=== PATIENT | female | born 1945 | race Caucasian/White ===

== ENCOUNTER → 2024-06-25 | Outpatient (CLI) | payer MEDICARE, BC, SELFPAY ==
[2024-06-25 12:25] LABS: Albumin, Serum 4.9 gm/dL (3.4-4.8); Alkaline Phosphatase 112 U/L (46-116); Anion Gap 11 (7-16); BUN/Creatinine Ratio 18 Ratio (12-20); Blood Urea Nitrogen 16 mg/dL (9-23); Calcium 10.9 mg/dL (8.3-10.6); Calcium (Corrected) 10.9 mg/dL (8.5-10.1); Carbon Dioxide 26.6 mMol/L (20.0-31.0); Chloride 103 mMol/L (98-107); Creatinine (Component) 0.9 mg/dL (0.6-1.3); Glucose 156 mg/dL (74-106); Osmolality,Calculated 285 (275-295); Potassium 4.1 mMol/L (3.4-5.1); Sodium 141 mMol/L (136-145); eGFR > 60 See Note
[2024-06-25 12:27] LABS: Alanine Aminotransferase 17 U/L (10-49); Albumin/Globulin Ratio 2.1 (1.2-2.2); Aspartate Amino Transferase 16 U/L (0-34); Bilirubin,Total 0.8 mg/dL (0.3-1.2); Globulin 2.3 gm/dL (2.3-3.5); Total Protein 7.2 gm/dL (5.7-8.2)
[2024-06-25 12:33] LABS: Glucose Estimated Average 180 mg/dL (80-131); Hemoglobin A1C 7.9 % Hgb (4.8-6.0)
== END | disposition home or self-care (01) ==
LOC: COPL 10:18
PROVIDERS: PCP Specialist; Referring Provider Specialist; Visit Provider Specialist
DX: E11.65 Type 2 diabetes mellitus with hyperglycemia (principal)
CPT/HCPCS: 36415; 80053; 83036

== ENCOUNTER 2024-08-19 10:00 | Outpatient (RCR) | payer MEDICARE, BC, SELFPAY ==
--- NOTE | 2024-07-30 15:48 | PTNOTE_ITS ---
PT OP Initial Eval Patient Information Outpatient Physical Therapy Treatment Date: 07/30/24 Visit Reasons: RIGHT HUMERUS FRACTURE Medical Diagnosis: Right Humerus Fracture Treatment Dx #1: Right UE Mobility Deficits Treatment Dx #2: Right UE Weakness Start of Care: 07/30/24 Date of Onset: 04/05/24 Smoking Status Smoking Status: Never smoker Initial Assessment Subjective: Pt is a 78 y/o female s/p right humerus fracture with olecranon osteotomy 04/05/24 post falling. Pt has limitation with self care, cooking, cleaning, chores, lifting, gripping, and performing recreational activities. Pt received 2 months of homehealth physical therapy. Objective: Right Shoulder AROM Flexion: 85 deg Abduction: 60 deg ER and IR: unable Right Shoulder MMTs: grossly 3-/5 Right Elbow AROM: -30 deg to 85 deg Right Elbow MMTs: grossly 3-/5 Wrist AROM Flexion: 80 deg Extension: 50 deg Supination: 64 deg Pronation: 90 deg Radial and Ulnar Deviation: WNL Wrist MMTs: grossly 3-/5 Bridge Game Director Strength L: 49 lbs R: 9 lbs Assessment: Pt demonstrate right UE mobility and strength deficits s/p surgery leading to difficulty with ADLs. Pt will benefit from physical therapy to increase ROM, strength, and work on hand dexterity Short Term and Group Sales Manager Goals 1) Increase right regional project manager strength to 35 lbs in 8 wks to be able to cook 2) Increase right shoulder AROM WFL in 8 wks to be able to perform self care activities 3) Decrease shoulder pain 2/10 in 8 wks to be able to perform cleaning activities 4) Increase right wrist AROM WFL in 8 wks to be able to perform lifting activities 5) Indep with HEP Treatment Plan 1) Manual Therapy 2) Therapeutic Activities 3) Therapeutic Exercises 4) Modalities (ice, heat) Frequency and Duration: 2 x wk for 8 wks Certification Dates: 07/30/24 to 10/27/24 Procedure Charges OP PT Eval Mod Complex 30 minutes: Yes
--- NOTE | 2024-08-03 15:38 | PT.ODAYNRPT ---
PT Outpatient Daily Note OP Daily Note Outpatient Physical Therapy Treatment Date: 08/03/24 Visit Reasons: RIGHT HUMERUS FRACTURE Subjective: Pt reports shoulder is stiff and painful. Objective: Please see flow sheet for ther ex list. Assessment: Pt demonstrates poor activity tolerance due to pain response to AAROM. Applied cold pack at end of session. Plan: Assess response to treatment. Length of Time (minutes) of Treatment: 30 Minutes Procedure Charges Therapeutic Exercise 30 minutes: Yes
--- NOTE | 2024-08-05 09:58 | PTNOTE_ITS ---
PT Outpatient Daily Note OP Daily Note Outpatient Physical Therapy Treatment Date: 08/05/24 Visit Reasons: RIGHT HUMERUS FRACTURE Subjective: Pt reports shoulder did good after last session, no soreness to report. Objective: Please see flow sheet for ther ex list. Assessment: Performed PROM to R shoulder minimal guarding allowing for minimal pain with movement. Plan: Continue with POC. Length of Time (minutes) of Treatment: 30 Minutes TELECOMMUNICATION EQUIPMENT REPAIRER Service Modifier Method I: Divide the number of min of care provided by the TELECOMMUNICATION EQUIPMENT REPAIRER/RUMA by the total min of care provided then multiply by 100. If greater than 11 percent modifier is required. Method II: Divide the total time of care provided to patient by 10 (round to the nearest whole number) and add 1 min. to set the minimum time requirement. If treatment total was 60 min., then 10% of 6 min PT CQ modifier applied: CQ Modifier applied Procedure Charges Therapeutic Exercise 30 minutes: Yes
--- NOTE | 2024-08-10 11:22 | PT.ODAYNRPT ---
PT Outpatient Daily Note OP Daily Note Outpatient Physical Therapy Treatment Date: 08/10/24 Visit Reasons: RIGHT HUMERUS FRACTURE Subjective: Pt's arm is getting better. Pt has been doing some of the exercises at home. Pt feels her shoulder is more loose lately. Pt still unable to do her hair. Objective: Please see flow chart for list of ther ex performed Assessment: progressing with shoulder flexion and abduction AAROM with less pain reported. Pt less guarded with PROM today. Plan: Contnue with PT Length of Time (minutes) of Treatment: 45 Minutes Procedure Charges Therapeutic Activity 15 minutes: Yes Therapeutic Exercise 30 minutes: Yes
--- NOTE | 2024-08-12 11:23 | PT.ODAYNRPT ---
PT Outpatient Daily Note OP Daily Note Outpatient Physical Therapy Treatment Date: 08/12/24 Visit Reasons: RIGHT HUMERUS FRACTURE Subjective: Pt's shoulder felt better after last session. Pt still has difficulty combing her hair. Objective: Please see flow chart for list of ther ex performed Assessment: progressing with shoulder PROM with less pain reported. Pt demonstrate improvement with finger flexion AROM with less pain reported Plan: Continue with PT Length of Time (minutes) of Treatment: 30 Minutes Procedure Charges Therapeutic Exercise 30 minutes: Yes
--- NOTE | 2024-08-16 11:07 | PT.ODAYNRPT ---
PT Outpatient Daily Note OP Daily Note Outpatient Physical Therapy Treatment Date: 08/16/24 Visit Reasons: RIGHT HUMERUS FRACTURE Subjective: Pt's shoulder is better. Pt still has limitation with making a full fist. Objective: Please see flow chart for list of ther ex performed Assessment: improving with shoulder AAROM flexion, slight difficulty with scaption today due to pain and post capsule tightness Plan: Continue with PT Length of Time (minutes) of Treatment: 45 Minutes Procedure Charges Therapeutic Exercise 45 minutes: Yes
--- NOTE | 2024-08-19 12:58 | PT.ODAYNRPT ---
PT Outpatient Daily Note OP Daily Note Outpatient Physical Therapy Treatment Date: 08/19/24 Visit Reasons: RIGHT HUMERUS FRACTURE Subjective: Pt's arm sore after last session. No new concerns to report Objective: Please see flow chart for list of ther ex performed Assessment: slow progress with finger flexion due to finger extensor tightness. Pt educated to continue stretching at home to improve hand mobility Plan: Continue with PT Length of Time (minutes) of Treatment: 30 Minutes Procedure Charges Therapeutic Exercise 30 minutes: Yes
== END 2024-08-20 23:59 | disposition home or self-care (01) ==
LOC: CPTX 10:00
PROVIDERS: PCP Specialist; Referring Provider Orthopaedic Surgery; Visit Provider Orthopaedic Surgery
DX: R53.1 Weakness (principal); S42.301D Unspecified fracture of shaft of humerus, right arm, subsequent encounter for fracture with routine healing; W19.XXXD Unspecified fall, subsequent encounter
CPT/HCPCS: 97110; 97162; 97530

== ENCOUNTER 2024-09-16 15:00 | Outpatient (RCR) | payer MEDICARE, BC, SELFPAY ==
--- NOTE | 2024-08-23 11:02 | PT.ODAYNRPT ---
PT Outpatient Daily Note OP Daily Note Outpatient Physical Therapy Treatment Date: 08/23/24 Visit Reasons: RIGHT HUMERUS FX Subjective: Pt's arm sore after last session due the the theraband. Overall shoulder is feeling better. Pt's elbow still feels really stiff. Objective: Please see flow chart for list of ther ex performed Assessment: progressing with shoulder AAROM and resistance with minimal pain reported. Post ice helped with pain and soreness Plan: Continue with PT Length of Time (minutes) of Treatment: 30 Minutes Procedure Charges Therapeutic Exercise 30 minutes: Yes
--- NOTE | 2024-08-31 11:44 | PT.ODAYNRPT ---
PT Outpatient Daily Note OP Daily Note Outpatient Physical Therapy Treatment Date: 08/31/24 Visit Reasons: RIGHT HUMERUS FX Subjective: Pt can start doing her hair with less limitation. Objective: Please see flow chart for list of ther ex performed Assessment: progressing wtih shoulder AROM allowing her to start doing her hair Plan: Continue with PT Length of Time (minutes) of Treatment: 30 Minutes Procedure Charges Therapeutic Exercise 30 minutes: Yes
--- NOTE | 2024-09-02 11:46 | PT.ODAYNRPT ---
PT Outpatient Daily Note OP Daily Note Outpatient Physical Therapy Treatment Date: 09/02/24 Visit Reasons: RIGHT HUMERUS FX Subjective: Pt's shoulder feels better. Pt can now reach further behind her back. Pt is stretching her fingers but not as much as she should. Objective: Please see flow chart for list of ther ex performed Assessment: progressing with shoulder HBB AROM with less pain reported. Pt continue to exhibit slow progress with full finger flexion AROM which relates to lack of stretching at home. Plan: Continue with PT Length of Time (minutes) of Treatment: 45 Minutes Procedure Charges Therapeutic Exercise 45 minutes: Yes
--- NOTE | 2024-09-07 11:21 | PT.ODAYNRPT ---
PT Outpatient Daily Note OP Daily Note Outpatient Physical Therapy Treatment Date: 09/07/24 Visit Reasons: RIGHT HUMERUS FX Subjective: Feeding and self care activities are getting easier. Pt mentioned that she wants to complete all of PT sessions and possibly asked for extension to work on arm and hand strength. Objective: Please see flow chart for list of ther ex performed Assessment: progressing with shoulder AROM and hand strength. Post ice helped with pain and soreness Plan: Continue with PT Length of Time (minutes) of Treatment: 30 Minutes Procedure Charges Therapeutic Exercise 30 minutes: Yes
--- NOTE | 2024-09-09 13:04 | PT.ODAYNRPT ---
PT Outpatient Daily Note OP Daily Note Outpatient Physical Therapy Treatment Date: 09/09/24 Visit Reasons: RIGHT HUMERUS FX Subjective: Pt reports progress with shoulder flexibility. Objective: Please see flow sheet for ther ex list. Assessment: Progressing strengthening and working toward improving [place] mobility per pt tolerance. Plan: Continue with POC. Length of Time (minutes) of Treatment: 30 Minutes PHYSICIAN NEONATOLOGY Service Modifier Method I: Divide the number of min of care provided by the PHYSICIAN NEONATOLOGY/TRAILHEAD CONSTRUCTION WORKER by the total min of care provided then multiply by 100. If greater than 11 percent modifier is required. Method II: Divide the total time of care provided to patient by 10 (round to the nearest whole number) and add 1 min. to set the minimum time requirement. If treatment total was 60 min., then 10% of 6 min PT CQ modifier applied: CQ Modifier applied Procedure Charges Therapeutic Exercise 30 minutes: Yes
--- NOTE | 2024-09-14 12:07 | PT.ODAYNRPT ---
PT Outpatient Daily Note OP Daily Note Outpatient Physical Therapy Treatment Date: 09/14/24 Visit Reasons: RIGHT HUMERUS FX Subjective: Pt's shoulder feels better and now can completely make a fist. Pt was able to hang up her clothes this past weekend. Objective: Please see flow chart for list of ther ex performed Assessment: demonstrate full finger flexion on the right hand. Pt is progressing with band resistance with good form noted during shoulder 4 way exercises Plan: Continue with PT Length of Time (minutes) of Treatment: 40 Minutes Procedure Charges Therapeutic Exercise 45 minutes: Yes
--- NOTE | 2024-09-16 15:58 | PT.ODAYNRPT ---
PT Outpatient Daily Note OP Daily Note Outpatient Physical Therapy Treatment Date: 09/16/24 Visit Reasons: RIGHT HUMERUS FX Subjective: Pt feels much better; cooking is getting easier and has been able to lift light object with right arm Objective: Please see flow chart for list of ther ex performed Assessment: progressing with shoulder ROM and hand resistance exercises Plan: Continue with PT Length of Time (minutes) of Treatment: 30 Minutes Procedure Charges Therapeutic Exercise 30 minutes: Yes
== END 2024-09-20 23:59 | disposition home or self-care (01) ==
LOC: CPTX 15:00
PROVIDERS: PCP Orthopaedic Surgery; Referring Provider Orthopaedic Surgery; Visit Provider Orthopaedic Surgery
DX: R53.1 Weakness (principal); S42.301D Unspecified fracture of shaft of humerus, right arm, subsequent encounter for fracture with routine healing; W19.XXXD Unspecified fall, subsequent encounter
CPT/HCPCS: 97110

== ENCOUNTER 2024-10-01 14:30 | Outpatient (RCR) | payer MEDICARE, BC, SELFPAY ==
--- NOTE | 2024-09-21 10:53 | PT.ODAYNRPT ---
PT Outpatient Daily Note OP Daily Note Outpatient Physical Therapy Treatment Date: 09/21/24 Visit Reasons: FRACTURE RIGHT HUMERUS Subjective: Pt reports improvement with making a fist and feels progress with shoulder flexibility. Objective: Please see flow sheet for ther ex list. Assessment: Pt demonstrates shoulder flexion during bicep curls exercise, corrects post verbal cues and demonstration to achieve desired motion. Plan: Continue with poC. Length of Time (minutes) of Treatment: 30 Minutes CASH CHECKER Service Modifier Method I: Divide the number of min of care provided by the CASH CHECKER/NURSERY SCHOOL TEACHER by the total min of care provided then multiply by 100. If greater than 11 percent modifier is required. Method II: Divide the total time of care provided to patient by 10 (round to the nearest whole number) and add 1 min. to set the minimum time requirement. If treatment total was 60 min., then 10% of 6 min PT CQ modifier applied: CQ Modifier applied Procedure Charges Therapeutic Exercise 30 minutes: Yes
--- NOTE | 2024-09-29 14:04 | PTNOTE_ITS ---
PT OP Progress/Discharge Note Date of Service: 09/29/24 Progress Note/DC Note Progress Note/Discharge Note: Progress Note Patient Information Visit Reasons: FRACTURE RIGHT HUMERUS Medical Diagnosis: Right Humerus Fracture Treatment Dx #1: Right UE Mobility Deficits Service Continue Service or Discharge: Continue Service Certification Date Certification Dates: 09/29/24 to 12/29/24 Status Subjective: Pt's shoulder and arm is feeling better. Pt mentioned feeding, self care, cooking, cleaning, and performing light ADLs are getting easier. Pt still has difficulty with lifting, gripping, reaching behind her back, and recreational activities. Objective: Right Shoulder AROM Flexion: 150 deg Abduction: 130 deg External Rotation: 75 deg Internal Rotation: 50 deg Right Shoulder MMTs: grossly 3+/5 Right Elbow AROM: -28 deg to 90 deg Right Elbow MMTs: grossly 3+/5 Right Wrist AROM Flexion: 90 deg Extension: 70 deg Supination: 70 deg Pronation: 90 deg Wrist MMTs: grossly 3+/5 Billet Inspector Strength L: 49 lbs R: 23 lbs Assessment: Pt has improved with right UE mobility and strength allowing her to resume light ADLs, chores, cook, and clean with less limitation. Pt has not met set goals and will continue to benefit from physical therapy to improve strength and mobility; thank you for your referrals. Plan: Continue with PT/POC and add 6 sessions (2 x wk for 3 wks) Procedure Charges Therapeutic Exercise 30 minutes: Yes
--- NOTE | 2024-10-01 15:02 | PT.ODAYNRPT ---
PT Outpatient Daily Note OP Daily Note Outpatient Physical Therapy Treatment Date: 10/01/24 Visit Reasons: FRACTURE RIGHT HUMERUS Subjective: Pt's arm and hand feels better. Pt will be seeing a new surgeon next week since her original surgeon who did the surgery left the area. Objective: Please see flow chart for list of ther ex perfromed Assessment: tolerate exercises with minimal pain; progressing with hand resistance exercises; all exercises completed with green resistance Plan: Continue with PT Length of Time (minutes) of Treatment: 30 Minutes Procedure Charges Therapeutic Exercise 30 minutes: Yes
== END 2024-10-20 23:59 | disposition home or self-care (01) ==
LOC: CPTX 14:30
PROVIDERS: PCP Orthopaedic Surgery; Referring Provider Orthopaedic Surgery; Visit Provider Orthopaedic Surgery
DX: R53.1 Weakness (principal); S42.301D Unspecified fracture of shaft of humerus, right arm, subsequent encounter for fracture with routine healing; W19.XXXD Unspecified fall, subsequent encounter
CPT/HCPCS: 97110

== ENCOUNTER → 2024-10-12 | Outpatient (CLI) | payer MEDICARE, BC, SELFPAY ==
[2024-10-12 12:47] LABS: Glucose Estimated Average 169 mg/dL (80-131); Hemoglobin A1C 7.5 % Hgb (4.8-6.0)
[2024-10-12 13:00] LABS: Alanine Aminotransferase 12 U/L (10-49); Albumin, Serum 4.5 gm/dL (3.4-4.8); Albumin/Globulin Ratio 1.8 (1.2-2.2); Alkaline Phosphatase 100 U/L (46-116); Anion Gap 4 (7-16); Aspartate Amino Transferase 15 U/L (0-34); BUN/Creatinine Ratio 22 Ratio (12-20); Bilirubin,Total 0.9 mg/dL (0.3-1.2); Blood Urea Nitrogen 20 mg/dL (9-23); Calcium 9.9 mg/dL (8.3-10.6); Calcium (Corrected) 9.9 mg/dL (8.5-10.1); Carbon Dioxide 23.9 mMol/L (20.0-31.0); Cardiac Risk Estimate 3.5 RATIO (3.7-5.6); Chloride 110 mMol/L (98-107); Cholesterol 150 mg/dL (132-200); Creatinine (Component) 0.9 mg/dL (0.6-1.3); Free T4 (Free Thyroxine) 1.24 ng/dL (0.89-1.76); Globulin 2.5 gm/dL (2.3-3.5); Glucose 131 mg/dL (74-106); HDL Cholesterol 43 mg/dL (40-60); LDL Cholesterol,Calculated 67 mg/dL (0-130); Osmolality,Calculated 280 (275-295); Sodium 138 mMol/L (136-145); Thyroid Stimulating Hormone 1.35 uIU/mL (0.55-4.78); Triglycerides 198 mg/dL (30-150); eGFR > 60 See Note
== END | disposition home or self-care (01) ==
LOC: COPL 12:04
PROVIDERS: PCP Specialist; Referring Provider Specialist; Visit Provider Specialist
DX: E11.65 Type 2 diabetes mellitus with hyperglycemia (principal); E03.8 Other specified hypothyroidism; E78.2 Mixed hyperlipidemia
CPT/HCPCS: 36415; 80053; 80061; 83036; 84439; 84443

== ENCOUNTER 2024-11-04 09:30 | Outpatient (RCR) | payer MEDICARE, BC, SELFPAY ==
--- NOTE | 2024-10-22 11:59 | PT.ODAYNRPT ---
PT Outpatient Daily Note OP Daily Note Outpatient Physical Therapy Treatment Date: 10/22/24 Visit Reasons: Right arm pain Subjective: Pt seen surgeon and is satisfy with her result. He was surprise she is further along due to type of break and surgery. Objective: Please see flow chart for list of ther ex performed Assessment: improved HBB AROM post stretching. Plan: Continue with PT Length of Time (minutes) of Treatment: 30 Minutes Procedure Charges Therapeutic Exercise 30 minutes: Yes
--- NOTE | 2024-10-28 09:28 | PT.ODAYNRPT ---
PT Outpatient Daily Note OP Daily Note Outpatient Physical Therapy Treatment Date: 10/28/24 Visit Reasons: Right arm pain Subjective: Pt reports flexibility has been improving and notices making a fist has gotten better. Objective: Please see flow sheet for ther ex list. Assessment: Verbal cues and demonstration to avoid trunk rotation during shoulder 4 way exercises with thera band, pt complied. Plan: Continue with POC. Length of Time (minutes) of Treatment: 30 Minutes GOLF PROFESSIONAL Service Modifier Method I: Divide the number of min of care provided by the GOLF PROFESSIONAL/RUMA by the total min of care provided then multiply by 100. If greater than 11 percent modifier is required. Method II: Divide the total time of care provided to patient by 10 (round to the nearest whole number) and add 1 min. to set the minimum time requirement. If treatment total was 60 min., then 10% of 6 min PT CQ modifier applied: CQ Modifier applied Procedure Charges Therapeutic Exercise 30 minutes: Yes
--- NOTE | 2024-11-01 10:25 | PT.ODAYNRPT ---
PT Outpatient Daily Note OP Daily Note Outpatient Physical Therapy Treatment Date: 11/01/24 Visit Reasons: Right arm pain Subjective: Pt has slight difficulty with putting on her ear ringer, however, overall arm is feeling stronger and moving well with less pain Objective: Please see flow chart for list of ther ex performed Assessment: progressing with HBB AROM and overall arm strength. Pt reports of less pain with HBB stretch Plan: Continue with PT Length of Time (minutes) of Treatment: 30 Minutes Procedure Charges Therapeutic Exercise 30 minutes: Yes
--- NOTE | 2024-11-04 12:58 | PT.ODS1RPT ---
PT OP Progress/Discharge Note Date of Service: 11/04/24 Progress Note/DC Note Progress Note/Discharge Note: DC Note Patient Information Visit Reasons: Right arm pain Medical Diagnosis: Right Humerus Fracture Treatment Dx #1: Right UE Mobility Deficits Service Continue Service or Discharge: Discharge Discharge Date: 11/04/24 Status Subjective: Pt's shoulder, arm, and hand is much better. Pt mention she can now feed, cook, clean, lifting, and performing recreational activities. At this time Pt feels comfortable being release from care with exercises to continue at home. Objective: Right Shoulder AROM: all motions are WFL Right Shoulder MMTs: grossly 4-/5 Right Scapula MMTs: grossly 3+/5 Right Elbow AROM: -25 deg to 95 deg Right Elbow MMTs: grossly 4/5 Right Wrist AROM: all motions are WNL Right Wrist MMTs: grossly 4-/5 Research Compliance Specialist Strength L: 58 lbs R: 40 lbs Assessment: Pt demonstrate functional right UE mobility and strength allowing her to resume ADLs, chores, self care, and recreational activities with minimal limitation. Pt has met set goals in therapy and will no longer benefit from physical therapy. Pt was instructed on HEP last session and educated to continue exercises to maintain overall mobility. Pt performed all exercises safely, thank you for your referrals. Plan: D/C home with HEP and follow up with MD WELDON Procedure Charges Therapeutic Exercise 30 minutes: Yes
== END 2024-11-20 23:59 | disposition home or self-care (01) ==
LOC: CPTX 09:30
PROVIDERS: PCP Orthopaedic Surgery; Referring Provider Orthopaedic Surgery; Visit Provider Orthopaedic Surgery
DX: R53.1 Weakness (principal); S42.301D Unspecified fracture of shaft of humerus, right arm, subsequent encounter for fracture with routine healing; W19.XXXD Unspecified fall, subsequent encounter
CPT/HCPCS: 97110

== ENCOUNTER → 2025-02-03 | Outpatient (CLI) | payer MEDICARE, BC, SELFPAY ==
[2025-02-03 15:30] LABS: Glucose Estimated Average 169 mg/dL (80-131); Hemoglobin A1C 7.5 % Hgb (4.8-6.0)
[2025-02-03 15:33] LABS: Alanine Aminotransferase 14 U/L (10-49); Albumin, Serum 4.6 gm/dL (3.4-4.8); Albumin/Globulin Ratio 2.1 (1.2-2.2); Alkaline Phosphatase 95 U/L (46-116); Anion Gap 12 (7-16); Aspartate Amino Transferase 15 U/L (0-34); BUN/Creatinine Ratio 16 Ratio (12-20); Bilirubin,Total 0.9 mg/dL (0.3-1.2); Blood Urea Nitrogen 19 mg/dL (9-23); Calcium 10.3 mg/dL (8.3-10.6); Calcium (Corrected) 10.3 mg/dL (8.5-10.1); Carbon Dioxide 24.0 mMol/L (20.0-31.0); Cardiac Risk Estimate 3.4 RATIO (3.7-5.6); Chloride 106 mMol/L (98-107); Cholesterol 138 mg/dL (132-200); Creatinine (Component) 1.2 mg/dL (0.6-1.3); Globulin 2.2 gm/dL (2.3-3.5); Glucose 145 mg/dL (74-106); HDL Cholesterol 41 mg/dL (40-60); LDL Cholesterol,Calculated 41 mg/dL (0-130); Osmolality,Calculated 288 (275-295); Potassium 4.0 mMol/L (3.4-5.1); Sodium 142 mMol/L (136-145); Total Protein 6.8 gm/dL (5.7-8.2); Triglycerides 279 mg/dL (30-150); eGFR 46 See Note
[2025-02-03 15:36] LABS: Creatinine MALB Rnd Ur 67 mg/dL (30-125); Microalbumin, Random Urine < 3 mg/L (0-300)
== END | disposition home or self-care (01) ==
PROVIDERS: PCP Specialist; Referring Provider Specialist; Visit Provider Specialist
DX: E11.65 Type 2 diabetes mellitus with hyperglycemia (principal)
CPT/HCPCS: 36415; 80053; 80061; 82043; 82570; 83036

== ENCOUNTER → 2025-03-22 | Outpatient (CLI) | payer MEDICARE, BC, SELFPAY ==
--- NOTE | 2025-03-22 11:15 | XR_ITS ---
Examination: Screening digital mammography, bilateral Computer aided detection 3-D breast Tomosynthesis, bilateral Date and time of exam: March 22, 2025, 1135 hours, compared to mammograms dating to May 13, 2013 Indication: Screening Technique: Nonmagnified MLO, CC views of the breasts to been obtained, reconstructed from 3-D Tomosynthesis images. R2 computer aided detection program utilized for evaluation of suspicious masses and/or abnormal calcifications. 3-D Tomosynthesis images obtained. Findings: Scattered areas of fibroglandular density Bilateral skin lesions. No interval suspicious masses Benign calcifications Impression: BI-RADS category II: Benign Findings. Recommend 1 year follow-up mammogram.
== END | disposition home or self-care (01) ==
LOC: CDIM 10:27
PROVIDERS: Referring Provider Specialist; Visit Provider Specialist
DX: Z12.31 Encounter for screening mammogram for malignant neoplasm of breast (principal); R92.323 Mammographic fibroglandular density, bilateral breasts; R92.1 Mammographic calcification found on diagnostic imaging of breast
CPT/HCPCS: 77063; 77067